=== PATIENT | female | born 1940 | race Two or more races ===

== ENCOUNTER 2017-02-24 21:55 | Inpatient (IN) | payer MEDICAID, OTHER ==
[~2017-02-24] VITALS: Ht 157.5 cm; Wt 70.4 kg
[2017-02-24 22:43] LABS: Basophils # (auto) 0.1 uL; Basophils % (auto) 0.6 % (0.0-2.0); Eosinophils # (auto) 0.1 uL; Eosinophils % (auto) 0.7 % (0.0-7.0); Hematocrit 37.2 % (36.0-46.0); Hemoglobin 12.9 g/dL (12.2-16.2); Lymphocytes # (auto) 3.2 uL; Lymphocytes % (auto) 31.7 % (10.0-50.0); Mean Corpuscular Hemoglobin 31.9 pg (28.0-32.0); Mean Corpuscular Hgb Conc. 34.7 g/dL (32.0-36.0); Mean Corpuscular Volume 91.9 fL (80.0-100.0); Mean Platelet Volume 7.3 fL (6.9-10.8); Monocytes # (auto) 0.6 uL; Neutrophils # (auto) 6.2 uL; Nucleated Red Blood Cells % 0.2 %; Platelet Count (auto) 259 10^3/uL (140-450); Red Cell Distribution Width 13.1 % (11.8-14.3); White Blood Cell 10.2 10^3/uL (4.4-10.8)
[2017-02-24 22:56] LABS: Albumin 3.6 g/dL (3.4-5.0); Anion Gap 11 (5-15); Aspartate Aminotransferase 16 U/L (15-37); BUN/Creatinine Ratio 18.2; Blood Urea Nitrogen 20 mg/dL (7-18); Calcium 9.1 mg/dL (8.5-10.1); Carbon Dioxide 28 mmol/L (21-32); Chloride 91 mmol/L (98-107); GFR African American 62 mL/min; GFR Non-African American 51 mL/min; Glucose 168 mg/dL (74-106); Potassium 3.8 mmol/L (3.5-5.1); Sodium 130 mmol/L (136-145)
[2017-02-24 23:00] LABS: Alkaline Phosphatase 78 U/L (45-117); Bilirubin, Total 0.4 mg/dL (0.2-1.0); Total Protein 7.1 g/dL (6.4-8.2)
[2017-02-25 00:05] LABS: Urine Bilirubin Negative (Negative); Urine Blood Negative /uL (Negative); Urine Color Yellow (Yellow); Urine Glucose Normal (Normal); Urine Hyaline Cast FEW /lpf (0 - 2); Urine Ketone Negative (Negative); Urine Mucus FEW (None Seen); Urine Nitrite Negative (Negative); Urine RBC 2 /hpf (0 - 4); Urine Squamous Epithelial Cell FEW /hpf (<5); Urine Urobilinogen Normal (Negative); Urine pH 5.5 (5.0-8.0)
[2017-02-25] MEDS ORDERED: SODIUM CHLORIDE 0.9% 1,000 ML IV ONE (01:45)
[2017-02-25] MEDS ORDERED: SODIUM CHLORIDE 0.9% 1,000 ML IV SCH (04:39)
[2017-02-25] MEDS: cefTRIAXone 1GM/50ML D5W 50 ML IV SCH ×2 (05:20→10:19)
[2017-02-25 06:34] VITALS: BP 130/73
[2017-02-25 09:00] VITALS: BP 130/73
[2017-02-25 12:51] VITALS: BP 132/73
[2017-02-25] MEDS ORDERED: LISI20TA10 PO (14:07)
[2017-02-25] MEDS ORDERED: ASPI1CHW15 PO (14:07)
[2017-02-25 16:40] VITALS: BP 140/77
[2017-02-25] MEDS ORDERED: ASPirin-EC 81 mg tab PO ONE (18:00)
[2017-02-25 20:00] VITALS: BP 137/83
[2017-02-25 22:00] VITALS: BP 137/83
[2017-02-25] MEDS: SODIUM CHLORIDE 0.9% 1,000 ML IV SCH (22:51)
[2017-02-25] MEDS: FAMOTIDINE 20 MG TAB PO SCH (22:51)
[2017-02-25] MEDS: ATORVASTATIN 20 MG TAB PO SCH (22:51)
[2017-02-26 05:00] VITALS: BP 147/81
[2017-02-26 06:38] LABS: Basophils # (auto) 0 uL; Basophils % (auto) 0.7 % (0.0-2.0); Eosinophils # (auto) 0.1 uL; Eosinophils % (auto) 1.5 % (0.0-7.0); Hematocrit 34.1 % (36.0-46.0); Lymphocytes # (auto) 2.4 uL; Mean Corpuscular Hemoglobin 32.4 pg (28.0-32.0); Mean Corpuscular Hgb Conc. 35.2 g/dL (32.0-36.0); Mean Corpuscular Volume 92.1 fL (80.0-100.0); Mean Platelet Volume 7.5 fL (6.9-10.8); Monocytes # (auto) 0.3 uL; Monocytes % (auto) 6.5 % (0.0-12.0); Neutrophils # (auto) 2.3 uL; Neutrophils % (auto) 44.3 % (37.0-80.0); Nucleated Red Blood Cells % 0.1 %; Platelet Count (auto) 232 10^3/uL (140-450); Red Cell Distribution Width 13.4 % (11.8-14.3); White Blood Cell 5.2 10^3/uL (4.4-10.8)
[2017-02-26 07:13] LABS: Albumin 3.1 g/dL (3.4-5.0); BUN/Creatinine Ratio 25.9; Bilirubin, Total 0.3 mg/dL (0.2-1.0); Calcium 8.3 mg/dL (8.5-10.1); Magnesium 1.6 mg/dL (1.6-2.6); Potassium 3.5 mmol/L (3.5-5.1); Total Protein 6.2 g/dL (6.4-8.2)
[2017-02-26 07:30] VITALS: BP 158/77
[2017-02-26] MEDS: cefTRIAXone 1GM/50ML D5W 50 ML IV SCH (10:31)
[2017-02-26] MEDS: ASPirin-EC 81 mg tab PO SCH (10:32)
[2017-02-26] MEDS: FAMOTIDINE 20 MG TAB PO SCH ×2 (10:32→22:48)
[2017-02-26] MEDS: ENOXAPARIN SOD 40 MG/0.4 ML SYRINGE SC SCH (10:32)
[2017-02-26] MEDS: SODIUM CHLORIDE 0.9% 1,000 ML IV SCH (10:33)
[2017-02-26] MEDS ORDERED: MAGNESIUM SULFATE 1GM/100ML 100 ML IV ONE (10:45)
[2017-02-26] MEDS ORDERED: POTASSIUM CHL 20 Meq TABLET PO ONE (10:45)
[2017-02-26 12:05] VITALS: BP 139/70
[2017-02-26 17:24] VITALS: BP 127/71
[2017-02-26 20:00] VITALS: BP 151/73
[2017-02-26] MEDS ORDERED: LORazepam 2MG/ML-1ML VIAL IV PRN (21:00)
[2017-02-26 22:00] VITALS: BP 151/73
[2017-02-26] MEDS: ATORVASTATIN 20 MG TAB PO SCH (22:48)
[2017-02-27] MEDS ORDERED: SODIUM CHLORIDE 0.9% 1,000 ML IV SCH (04:39)
[2017-02-27 05:11] VITALS: BP 128/68
[2017-02-27 08:00] VITALS: BP 157/89
[2017-02-27 08:30] VITALS: BP 157/89
[2017-02-27] MEDS ORDERED: IBUPROFEN 400 MG TAB PO ONE (10:30)
[2017-02-27] MEDS ORDERED: HCTZ 25 MG TAB PO ONE (10:30)
[2017-02-27] MEDS ORDERED: LORazepam 2MG/ML-1ML VIAL IV ONE (10:30)
[2017-02-27] MEDS ORDERED: LISINOPRIL 20 MG TAB PO SCH (10:45)
[2017-02-27] MEDS: FAMOTIDINE 20 MG TAB PO SCH (11:37)
[2017-02-27] MEDS: ASPirin-EC 81 mg tab PO SCH (11:37)
[2017-02-27] MEDS: cefTRIAXone 1GM/50ML D5W 50 ML IV SCH (11:37)
[2017-02-27] MEDS: ENOXAPARIN SOD 40 MG/0.4 ML SYRINGE SC SCH (11:37)
[2017-02-27 12:54] VITALS: BP 141/78
[2017-02-27 13:00] VITALS: BP 141/78
[2017-02-27] MEDS ORDERED: ATOR10TA PO (14:27)
[2017-02-28] MEDS ORDERED: HCTZ 25 MG TAB PO SCH (10:00)
== END 2017-02-27 16:45 | disposition home or self-care (01) | DRG 47 ==
LOC: EDBD 21:55 → ER 22:04 → OVERFLOW 22:05 → CENTRAL 02-25 05:54 → TELE-CENTR 02-27 00:15
PROVIDERS: ADMIT Family Medicine; ATTEND Internal Medicine
DX: G45.9 Transient cerebral ischemic attack, unspecified (principal); N17.0 Acute kidney failure with tubular necrosis; E87.1 Hypo-osmolality and hyponatremia; E86.0 Dehydration; I10 Essential (primary) hypertension; N39.0 Urinary tract infection, site not specified; R55 Syncope and collapse; E78.5 Hyperlipidemia, unspecified; H53.8 Other visual disturbances; E66.3 Overweight; Z68.28 Body mass index [BMI] 28.0-28.9, adult; Z82.49 Family history of ischemic heart disease and other diseases of the circulatory system
CPT/HCPCS: 36415; 70450; 70551; 80053; 80061; 80307; 81001; 82962; 83036; 83605; 83735; 84484; 85025; 87086; 93005; 93306; 93886; 95819; 96360; J0696